=== PATIENT | female | born 1960 | race Caucasian/White ===

== ENCOUNTER 2016-06-09 07:56 | Day surgery (SDC) | payer OTHER ==
[2016-06-06 17:44] VITALS: BMI 44.2
[2016-06-09] MEDS ORDERED: HYDROmorphone HCL/PF 1 MG/ML VIAL (FOR PYXIS CHARGING ONLY) ONE ×2 (11:53→14:18)
[2016-06-09] MEDS ORDERED: PROPOFOL 20 ML ONE ×2 (11:53)
[2016-06-09] MEDS ORDERED: ROCURONIUM BROMIDE 50 MG/5 ML VIAL ONE ×2 (11:53→13:46)
[2016-06-09] MEDS ORDERED: MIDAZOLAM HCL 2 MG/2 ML SINGLE DOSE VIAL ONE (11:53)
[2016-06-09] MEDS ORDERED: LIDOCAINE HCL/PF 2% SDV 5ML VIAL ONE (11:56)
[2016-06-09] MEDS ORDERED: ceFAZolin SODIUM 1 GM VIAL IVPB ONE (12:24)
[2016-06-09] MEDS ORDERED: ceFAZolin SODIUM 1 GM VIAL ONE (12:32)
[2016-06-09] MEDS ORDERED: DEXAMETHASONE SOD PHOSPHATE 4 MG/1 ML VIAL ONE (12:43)
[2016-06-09] MEDS ORDERED: PROMETHAZINE HCL 25 MG/1 ML VIAL IVPB PRN (13:06)
[2016-06-09] MEDS ORDERED: PROMETHAZINE HCL 25 MG/1 ML VIAL IVPUSH PRN (13:06)
[2016-06-09] MEDS ORDERED: DEXAMETHASONE SOD PHOSPHATE 4 MG/1 ML VIAL IVPUSH PRN (13:06)
[2016-06-09] MEDS ORDERED: ONDANSETRON 4 MG/2 ML VIAL IVPUSH PRN ×2 (13:06)
[2016-06-09] MEDS ORDERED: HYDROmorphone *PCA* 10MG/50ML DISP.SYRIN PCA SCH (13:15)
[2016-06-09] MEDS ORDERED: LACTATED RINGERS SOLUTION 1,000 ML IV SCH (13:15)
[2016-06-09] MEDS ORDERED: NEOSTIGMINE METHYLSULFATE 0.5 MG/ML - 10 ML MDV ONE (16:07)
[2016-06-09] MEDS ORDERED: GLYCOPYRROLATE 0.2 MG/1 ML VIAL ONE (16:08)
[2016-06-09] MEDS ORDERED: ONDANSETRON 4 MG/2 ML VIAL IVPB PRN (17:36)
[2016-06-09] MEDS ORDERED: oxyCODONE HCL 5 MG TABLET PO PRN (17:36)
--- NOTE | 2016-06-09 17:51 | OP ---
Operative Note - Note: Operative Date: 06/09/16 Pre-Operative Diagnosis: left breast cancer Operation: Bilateral breast reconstruction using reducation technique following lumpectomy Post-Operative Diagnosis: Same as Pre-op Surgeon: Chadwick Varghese Carbonizer Tester: Arabella Madrigal Anesthesiologist/GENETIC COUNSELLOR: Arianna Rabago Anesthesia: General Specimens Removed: Bilateral breast tissue and skin Estimated Blood Loss (mls): 500 Fluid Volume Replaced (mls): 1,800 Operative Report Dictated: Yes
--- NOTE | 2016-06-09 17:52 | SURG ---
Surgery Occ Ther Note Occ Ther: Arabella Madrigal PA-C Date of Service: 06/09/16 Diagnosis: left breast cancer Procedure: Bilateral breast reconstruction using reduction technique following lumpectomy I was present for the entirety of the operative procedure. For further detail, please refer to operative report. Visit type - Case Type Case Type: Scheduled Admission - Emergency Emergency Visit: No - New patient This patient is new to me today: Yes Date on this admission: 06/09/16 - Critical Care Critical Care patient: No
[2016-06-09] MEDS: LACTATED RINGERS SOLUTION 1,000 ML IV SCH (19:00)
[2016-06-09] MEDS: oxyCODONE HCL 5 MG TABLET PO PRN (20:28)
[2016-06-09] MEDS: ACETAMINOPHEN 325 MG TABLET (FP) PO PRN (23:00)
[2016-06-10] MEDS: oxyCODONE HCL 5 MG TABLET PO PRN ×2 (02:10→08:18)
[2016-06-10] MEDS: LACTATED RINGERS SOLUTION 1,000 ML IV SCH (03:21)
[2016-06-10] MEDS: ACETAMINOPHEN 325 MG TABLET (FP) PO PRN (08:19)
[2016-06-10] MEDS ORDERED: HYDROCHLOROTHIAZIDE 25 MG TABLET (FP) PO SCH (10:00)
[2016-06-10 10:31] VITALS: BP 138/81; PULSE 78; TEMP 98.8
--- NOTE | 2016-06-10 10:31 | CONSULT ---
Consult - text type - Consultation Consultation Note: pod 1 doing well, afebrile, VSS Incisions intact. d/c home today
--- NOTE | 2016-06-13 15:55 | PATH ---
Surgical Pathology Report Patient Name: TOMASZ MERINO [facility] Rec. #: [id number] /Age/Gender: 1960 (Age: 56) / F Account: <[id number]> Location: [facility] Taken: 06/09/2016 Received: 06/09/2016 Reported: 06/13/2016 Physicians: Nury Chavez M.D. Specimen(s) Received A: LEFT BREAST LUMPECTOMY B: RIGHT BREAST 1520 GRAMS C: LEFT BREAST 1529 GRAMS D: LEFT BREAST NEW INFERIOR MARGIN, STITCH LAO OLD MARGIN Clinical History Left breast DCIS Final Diagnosis A. BREAST, LEFT, LUMPECTOMY: DUCTAL CARCINOMA IN SITU (DCIS), PAPILLARY, MICROPAPILLARY AND CRIBRIFORM TYPE, INTERMEDIATE NUCLEAR GRADE. DCIS IS PRESENT IN ONE OF ELEVEN SLIDES (03/30), WITH THE LARGEST FOCUS OF DCIS AND MEASURES 2 MM IN GREATEST DIMENSION, MICROSCOPICALLY. DCIS IS FOCALLY CLOSE TO (< 1 MM) THE SUPERIOR MARGIN. PRIOR BIOPSY SITE CHANGES ARE PRESENT. REMAINING BREAST TISSUE SHOW SMALL INTRADUCTAL PAPILLOMA AND FIBROCYSTIC CHANGES. PATHOLOGIC STAGE (pTNM): pTIs (DCIS) pNx. SEE ALSO DCIS CASE SUMMARY BELOW. B. BREAST, RIGHT, REDUCTION: BREAST TISSUE SHOWING PROLIFERATIVE FIBROCYSTIC CHANGES INCLUDING CYSTIC APOCRINE METAPLASIA AND USUAL DUCTAL HYPERPLASIA (UDH). SKIN WITH NO PATHOLOGIC FINDINGS. C. BREAST, LEFT, REDUCTION: FOCAL ATYPICAL DUCTAL HYPERPLASIA (ADH) ARISING IN ASSOCIATION WITH PROLIFERATIVE FIBROCYSTIC CHANGES INCLUDING CYSTIC APOCRINE METAPLASIA AND USUAL DUCTAL HYPERPLASIA (ADH). SKIN WITH NO PATHOLOGIC FINDINGS. D. BREAST, LEFT, NEW INFERIOR MARGIN, EXCISION: BENIGN BREAST TISSUE SHOWING PRIOR BIOPSY SITE CHANGES. Comments DCIS of Breast: Surgical Pathology Cancer Case Summary Based on AJCC/UICC TNM, 7th edition Procedure _X_ Excision with image-guided localization Specimen Laterality _X_ Left Estimated size (extent) of DCIS (greatest dimension using gross and microscopic evaluation): at least 2 mm and: Number of blocks with DCIS: 1 Number of blocks examined: 11 Nuclear Grade _X_ Grade II (intermediate) Necrosis _X_ Present, focal (small foci or single cell necrosis) Microcalcifications _X_ Not identified Margins _X_ Margin(s) close to (< 1 mm) DCIS: superior Pathologic Staging (pTNM) Primary Tumor (pT) _X_ pTis (DCIS): Ductal carcinoma in situ Regional Lymph Nodes (pN): pNx Biomarker Studies Results of ER and WY studies performed on block A9 at [facility] are as follows: ER (clone [id number] mouse monoclonal antibody by [employer]): > 90 % nuclear staining with strong intensity (Positive). WY (clone16 mouse monoclonal antibody by [employer]): > 90 % nuclear staining with strong intensity (Positive). Positive and negative controls (internal if applicable) show appropriate results. Formalin fixation time is within current ASCO/CAP recommendations for ER, W[place] and Her2 testing. Time to fixation is not known. Electronically Signed Ellen Helms M.D. Gross Description A. Received fresh on an AccuGrid labeled "left breast lumpectomy," is an 11.0 x 6.0 x 2.7 cm irregular portion of fibroadipose tissue with a needle localization wire present. There is a short suture marking the superior aspect and a long suture marking the lateral aspect of the specimen, per the surgeon. There is no skin present. The specimen is inked as follows: superior and lateral blue; inferior green; medial yellow; anterior red; deep black. The specimen is serially sectioned from medial to lateral. Sectioning reveals a 0.9 x 0.9 x 0.8 cm ill-defined focus of firm fibrous tissue focally abutting the anterior margin. The remaining breast parenchyma displays foci of fibrous tissue. No definitive masses are identified. Sandblast Operator sections are submitted in 11 cassettes as follows: 1-3-firm focus of fibrous tissue with anterior and deep margins; 5-3-cnpqkgxiwm fibrous tissue surrounding firm focus with anterior and deep margins; 8-inferior margin; 9-superior margin; 10-medial margin; 11-lateral margin. Time to fixation: Not given Total formalin fixation time: Approximately 27 hours B. Received in formalin labeled "right breast 1520 g" is a 26.0 x 20.0 x 7.5 cm aggregate of multiple irregular, unoriented portions of fibroadipose tissue and campbell, unremarkable skin. Sectioning reveals multiple foci of white fibrous tissue. No definitive masses are identified. Sandblast Operator sections are submitted in 4 cassettes. C. Received in formalin labeled "left breast 1529 g," is a 32.0 x 18.0 x 5.0 cm aggregate of multiple irregular, unoriented portions of fibroadipose tissue and campbell, unremarkable skin. Sectioning reveals multiple foci of white fibrous tissue. No definitive masses are identified. Sandblast Operator sections are submitted in 5 cassettes. D. Received in formalin labeled "left breast new inferior margin," is a 6.0 x 2.5 x 0.8 cm irregular portion of fibroadipose tissue with a suture marking the old margin, per the surgeon. The new margin is inked green and the specimen is serially sectioned. The specimen is entirely and sequentially submitted in 8 cassettes. 06/10/201606/10/2016
--- NOTE | 2016-07-20 06:17 | OP ---
DATE OF OPERATION: 06/09/2016 PREOPERATIVE DIAGNOSIS: Left breast ductal carcinoma in situ. POSTOPERATIVE DIAGNOSIS: Left breast ductal carcinoma in situ. PROCEDURE: A left breast wide localized lumpectomy. SURGEON: Nury Chavez MD ANESTHESIA: General. ESTIMATED BLOOD LOSS: Minimal. COMPLICATIONS: None. This was a sterile procedure. INDICATIONS: Patient had a screening mammogram that noted calcifications in the inferior left breast. She had a needle biopsy that showed DCIS. My recommendation was a lumpectomy. Given the large size of her breast, we did discuss a reduction mammoplasty. I sent her to plastic surgery for an opinion. After discussion, she elected to go ahead with a reduction mammoplasty and to remove the area of DCIS with a lumpectomy. The procedure was discussed with all the questions answered. PROCEDURE IN DETAIL: Patient was brought to [facility], first taken to breast imaging where a wire was used to localize the clip in the inferior left breast, and then she was brought up to the operating room, and after induction of general anesthesia and IV antibiotics, both breasts were prepped and draped in the usual sterile fashion. An incision that was marked out by Dr. Varghese was used in the inferior left breast, and a wire was used as a guide to get down to the area of interest. This was excised en bloc, tacked with long sutures lateral, short sutures superior, and was sent for specimen radiograph. I felt I might be close inferiorly. Therefore, I took a new inferior margin with stitch at the old margin. Specimen radiograph showed the clip and wire to be intact within the specimen, which appeared to be a good amount of tissue around the clip. This was then sent to Pathology for permanent section in formalin. Hemostasis was assured with electrocautery. The patient was then left with Dr. Varghese to finish the reconstructive part of this procedure. Naren [id number]
--- NOTE | 2016-08-19 15:57 | OP ---
DATE OF OPERATION: 06/09/2016 PREOPERATIVE DIAGNOSIS: Left breast cancer. POSTOPERATIVE DIAGNOSIS: Left breast cancer. PROCEDURES PERFORMED: Breast needle-guided lumpectomy (Nury Chavez MD) via a Slater pattern breast reduction procedure and a contralateral breast symmetry procedure. SURGEON: Chadwick Queen MD ANESTHESIA: General via endotracheal tube. BRIEF HISTORY: The patient is a 56-year-old female who has breasts that are large and ptotic with a breast cancer in the lower outer quadrant of the left breast. She is for lumpectomy with Dr. Chavez via a resection by Slater pattern breast reduction including the area of the lumpectomy in the breast reduction specimen. The patient was marked the day prior to surgery in the standing position and these markings were now used as a guide for surgery. The right breast was addressed first and the left breast was approached first by Dr. Chavez who performed a needle-guided lumpectomy prior to the reconstruction. An inferiorly-based pedicle was created approximately 10 cm in width and this area was de-epithelialized as drawn. Medial, lateral and superior flaps were developed and tissue was excised within this area. While performing this procedure, it was noted that on the contralateral side, Dr. Chavez needed to extend the resection significantly under the planned inferiorly-based pedicle. This required a revision of the plan on the right breast to leave more tissue then initially anticipated. As a result, skin flaps when closed were tight, so it was elected to leave the wound partially open and use skin from the de-epithelialized portion of the breast as a split-thickness skin graft to cover this area. The grafted area was in the inferior portion of the breast and all wounds except this area were closed in a layered fashion. Deep tissues were closed with number 3-0 and 4-0 Biosyn suture in interrupted buried fashion and the skin was closed with a 4-0 V-Loc 90 suture in a continuous intradermal fashion, as well as multiple 4-0 nylon interrupted sutures. The grafted area was secured using 5-0 Vicryl suture circumferentially and within the center of the graft which was pie-crusted prior to insertion. The procedure was then carried out on the left breast, modifying the incisions as marked to accommodate a shift of the pedicle from the planned inferiorly-based pedicle to the now superomedially-based pedicle, as the inferior portion of the pedicle was removed as part of the lumpectomy specimen. The procedure then included developing superolateral and medial flaps and resecting additional tissue from the superior and lateral quadrants and insetting flaps as designed. Next, 2-0 silk lacy sutures were placed and wounds were closed in a layered fashion similarly to the right side. Deep tissues were then closed with number 3-0 and 4-0 Biosyn suture in interrupted buried fashion and the skin was closed with a deep dermal layer of 4-0 V-Loc 90. Wounds were secured with Steri-Strips and a bolster dressing was used on the right breast over the skin graft consisting of Xeroform gauze and combined some overlying Xeroform. All dressings were then further secured using a surgical bra. The patient was then awoken from anesthesia without any difficulty, and taken from the operating room to the recovery room in satisfactory condition, having tolerated the procedure well. CHADWICK QUEEN M.D. /[id number]
== END 2016-06-10 11:05 | disposition home or self-care (01) ==
LOC: JASUSAT 07:56 → JSAMEDAYSX 07:56 → UNDOADMIN 07:56 → EDSTATUS 12:00 → JSAMEDAYSX 19:40 → J6S 19:40 → JASUSAT 06-10 11:05 → UNDODISIN 06-10 11:05
PROVIDERS: ATTEND Surgery
PROC: 0HBV0ZZ Excision of Bilateral Breast, Open Approach (ICD-10-PCS; 2016-06-09)
PROC: 0HBU0ZZ Excision of Left Breast, Open Approach (ICD-10-PCS; principal; 2016-06-09 12:00)
PROC: 0HBV0ZZ Excision of Bilateral Breast, Open Approach (ICD-10-PCS; 2016-06-09 12:00)
DX: D05.92 Unspecified type of carcinoma in situ of left breast (principal); D05.12 Intraductal carcinoma in situ of left breast; N65.1 Disproportion of reconstructed breast
CPT/HCPCS: 19281; 84703; 88305-TC; 88307-TC; 94760

== ENCOUNTER 2016-07-28 09:07 | Day surgery (SDC) | payer OTHER ==
[2016-07-27 12:18] VITALS: BMI 40.7
[2016-07-28] MEDS ORDERED: BUPIVACAINE HCL/PF 0.25% (2.5MG/ML) 10 ML VIAL ONE (12:24)
[2016-07-28] MEDS ORDERED: LIDOCAINE 1%/EPI 1:100000 (50 ML MULTI DOSE VIAL) ONE (12:24)
[2016-07-28] MEDS ORDERED: MINERAL OIL 25 ML OIL ONE ×2 (12:25→14:03)
[2016-07-28] MEDS ORDERED: MIDAZOLAM HCL 2 MG/2 ML SINGLE DOSE VIAL ONE (12:32)
[2016-07-28] MEDS ORDERED: PROPOFOL 20 ML ONE (12:32)
[2016-07-28] MEDS ORDERED: ROCURONIUM BROMIDE 50 MG/5 ML VIAL ONE (12:32)
[2016-07-28] MEDS ORDERED: DEXAMETHASONE SOD PHOSPHATE 4 MG/1 ML VIAL ONE ×2 (12:32→13:45)
[2016-07-28] MEDS ORDERED: LIDOCAINE HCL/PF 2% SDV 5ML VIAL ONE (12:32)
[2016-07-28] MEDS ORDERED: ceFAZolin SODIUM 1 GM VIAL ONE (12:33)
[2016-07-28] MEDS ORDERED: ceFAZolin SODIUM 1 GM VIAL IVPB ONE (12:56)
[2016-07-28] MEDS ORDERED: MINERAL OIL 25 ML OIL TP ONE ×2 (13:27)
[2016-07-28] MEDS ORDERED: GLYCOPYRROLATE 0.2 MG/1 ML VIAL ONE (13:45)
[2016-07-28] MEDS ORDERED: NEOSTIGMINE METHYLSULFATE 0.5 MG/ML - 10 ML MDV ONE (13:45)
[2016-07-28] MEDS ORDERED: BACITRACIN 30 GM TUBE TOPICAL OINTMENT ONE (14:03)
[2016-07-28] MEDS ORDERED: BACITRACIN 30 GM TUBE TOPICAL OINTMENT TP ONE (14:05)
[2016-07-28] MEDS ORDERED: ONDANSETRON 4 MG/2 ML VIAL IVPUSH PRN (14:19)
[2016-07-28] MEDS ORDERED: oxyCODONE HCL 5 MG TABLET PO PRN (14:19)
[2016-07-28] MEDS ORDERED: LACTATED RINGERS SOLUTION 1,000 ML IV SCH (14:30)
--- NOTE | 2016-07-28 15:01 | OP ---
Operative Note - Note: Operative Date: 07/28/16 Pre-Operative Diagnosis: Large Open Wound Right Breast Operation: Debridement of Large Right Breast Wound. Split Thickness Skin Graft Coverage of Large Right Breast Wound Post-Operative Diagnosis: Same as Pre-op Surgeon: Chadwick Varghese Anesthesiologist/WORM GROWER: Juan Daniel Valverde Anesthesia: General Operative Report Dictated: Yes
--- NOTE | 2016-07-28 15:43 | OP ---
DATE OF OPERATION: 07/28/2016 PREOPERATIVE DIAGNOSIS: Large open wound right breast. POSTOPERATIVE DIAGNOSIS: Large open wound right breast. PROCEDURE PERFORMED: Spit-thickness skin graft coverage to large open wound right breast. SURGEON: Chadwick Queen MD ANESTHESIA: General. BRIEF HISTORY: The patient is several months status post treatment of a left breast cancer through a bilateral breast reduction approach. The resection on the contralateral side required undermining the breast reduction pedicle so forced a change in the orientation of the pedicle, which left the contralateral right breast larger than anticipated. This created tight skin wounds, which eventually dehisced leaving a large open wound on the left medial breast. The patient now presents for spit-thickness skin graft closure of this open wound on the medial breast. DESCRIPTION OF PROCEDURE: The patient was on the operating room table in the supine position, and general anesthesia was administered by the anesthesiologist. The area of the chest and left upper thigh was prepped and draped in the usual sterile fashion. The right breast wound was debrided sharply with a No. 10 scalpel blade of all granulation tissue. The left upper thigh was then used as a harvest site for a spit-thickness skin graft, which was harvested using a [place] dermatome. The thickness of the skin graft was 0.0014 inch and measured approximately 14 x 8 cm. This was transferred to a meshing plate and was meshed at a ratio of 1.5:1. The graft was then transferred to the recipient side of the left breast and trimmed to size and sutured in place using a 4-0 Vicryl suture circumferentially and within the central portions of the graft. A tie-over bolster was fashioned using Xeroform gauze and mineral oil-soaked cotton, and this was secured with 2-0 silk sutures. The donor site was dressed with bacitracin and Telfa. The breast was further dressed with fluff dressings and covered with combine pads and secured with a surgical bra. The patient was then awoken from anesthesia without any difficulty and taken from the operating room to the recovery room in satisfactory condition having tolerated the procedure well. CHADWICK QUEEN M.D. /[id number]
[2016-07-28 16:01] VITALS: TEMP 97.7
[2016-07-28 17:57] VITALS: BP 114/66; PULSE 68
== END 2016-07-28 17:58 | disposition home or self-care (01) ==
LOC: JASU-SURG 09:07
PROVIDERS: ATTEND Plastic Surgery
PROC: 0HBJXZZ Excision of Left Upper Leg Skin, External Approach (ICD-10-PCS; 2016-07-28)
PROC: 0HR5X74 Replacement of Chest Skin with Autologous Tissue Substitute, Partial Thickness, External Approach (ICD-10-PCS; principal; 2016-07-28 11:45)
DX: S21.001A Unspecified open wound of right breast, initial encounter (principal); Z85.3 Personal history of malignant neoplasm of breast; Y83.8 Other surgical procedures as the cause of abnormal reaction of the patient, or of later complication, without mention of misadventure at the time of the procedure; Y92.9 Unspecified place or not applicable
CPT/HCPCS: 94760

== ENCOUNTER 2021-01-26 04:28 | Day surgery (SDC) | payer OTHER ==
[2021-01-22 14:30] VITALS: BMI 42.5
[~2021-01-26 04:28] MED LIST: LIDOCAINE HCL 1%, 10 MG/ML (20ML VIAL) INF ONE; ceFAZolin SODIUM 1 GM VIAL IVPB ONE
[2021-01-26] MEDS ORDERED: LIDOCAINE HCL 1%, 10 MG/ML (20ML VIAL) ONE (13:40)
[2021-01-26] MEDS ORDERED: ceFAZolin SODIUM 1 GM VIAL ONE (14:36)
[2021-01-26] MEDS ORDERED: MIDAZOLAM HCL 2 MG/2 ML SINGLE DOSE VIAL ONE (14:36)
[2021-01-26] MEDS ORDERED: PROPOFOL 20 ML ONE ×2 (14:36→15:09)
[2021-01-26] MEDS ORDERED: GLYCOPYRROLATE 0.2 MG/1 ML VIAL ONE (14:37)
[2021-01-26] MEDS ORDERED: LIDOCAINE HCL/PF 2% SDV 5ML VIAL ONE ×2 (14:42→15:02)
[2021-01-26] MEDS ORDERED: ceFAZolin SODIUM 1 GM VIAL IVPB ONE (14:46)
[2021-01-26] MEDS ORDERED: DEXAMETHASONE SOD PHOSPHATE 4 MG/1 ML VIAL ONE (14:51)
[2021-01-26] MEDS ORDERED: LIDOCAINE HCL 1%, 10 MG/ML (20ML VIAL) INF ONE (15:04)
[2021-01-26] MEDS ORDERED: ACETAMINOPHEN 1000 MG/100 ML VIAL IVPB ONE (16:12)
[2021-01-26] MEDS ORDERED: ONDANSETRON 4 MG/2 ML VIAL IVPUSH PRN (16:12)
[2021-01-26] MEDS ORDERED: PROMETHAZINE HCL 25 MG/1 ML VIAL IVPUSH PRN (16:12)
[2021-01-26] MEDS ORDERED: oxyCODONE HCL 5 MG TABLET PO PRN (16:12)
[2021-01-26] MEDS ORDERED: LACTATED RINGERS SOLUTION 1,000 ML IV SCH (16:15)
[2021-01-26] MEDS ORDERED: oxyCODONE HCL 5 MG TABLET ONE (16:59)
[2021-01-26 18:17] VITALS: BP 136/77; PULSE 77; TEMP 97.7
== END 2021-01-26 18:25 | disposition home or self-care (01) ==
LOC: JASU-SURG 04:28
PROVIDERS: ATTEND Surgery
PROC: 0HBU0ZZ Excision of Left Breast, Open Approach (ICD-10-PCS; principal; 2021-01-26 12:00)
DX: D05.12 Intraductal carcinoma in situ of left breast (principal); E11.9 Type 2 diabetes mellitus without complications; Z79.84 Long term (current) use of oral hypoglycemic drugs; G47.30 Sleep apnea, unspecified
CPT/HCPCS: 88307-TC; 88341-TC; 88342-TC; 94760; J0131